=== PATIENT | male | born 1960 | race Caucasian/White ===

== ENCOUNTER 2025-07-07 10:49 | Emergency (ER) | payer MEDICARE, BC ==
[2025-07-07] MEDS ORDERED: predniSONE 20 MG TAB ONE (11:33)
== END 2025-07-07 12:45 | disposition home or self-care (01) ==
LOC: NAV ERS 10:49
DX: J44.1 Chronic obstructive pulmonary disease with (acute) exacerbation (principal); I48.91 Unspecified atrial fibrillation; Z87.891 Personal history of nicotine dependence
CPT/HCPCS: 71045; 87081; 87428; 87430; J7512